=== PATIENT | male | born 1995 | race Caucasian/White ===

== ENCOUNTER 2020-09-21 14:45 | Inpatient (IN) | payer MEDICAID ==
[~2020-09-21] VITALS: Ht 185.4 cm; Wt 72.5 kg
--- NOTE | 2020-09-21 15:05 | NUR ---
FINGER STICK BLOOD GLUCOSE 479
[2020-09-21 15:29] LABS: BASOPHILS 0.2 % (0-2); EOSINOPHILS 0.1 % (0-7); HEMATOCRIT 50.4 % (42.0-54.0); HEMOGLOBIN 17.5 g/dL (13.5-17.5); IMMATURE GRANULOCYTES 3.5 % (0-5); LYMPHOCYTE ABS# 1.43 10x3/uL (1.32-3.57); LYMPHOCYTES 16.1 % (15-50); MCH 31.3 pg (26.0-34.0); MCHC 34.7 g/dL (31.0-37.0); MEAN PLATELET VOLUME 10.1 fL (7.4-10.4); MONOCYTES 7.3 % (2-11); NEUTROPHIL ABS# 6.45 10x3/uL (1.78-5.38); NEUTROPHILS 72.8 % (40-80); PLATELET COUNT 320 10x3/uL (130-400); RDW 13.6 % (11.5-14.5); WBC 8.9 10x3/uL (4.8-10.8)
[2020-09-21 15:48] LABS: ANION GAP 31.4 mmol/L (8-16); CARBON DIOXIDE 10.1 mmol/L (21.0-32.0); CREATININE - SERUM 1.4 mg/dL (0.6-1.3); POTASSIUM - SERUM 4.5 mmol/L (3.5-5.1)
[2020-09-21 15:51] LABS: BILIRUBIN - TOTAL 0.44 mg/dL (0.2-1.3); MAGNESIUM - SERUM 1.9 mg/dL (1.8-2.4); PROTEIN - SERUM 8.6 g/dL (6.4-8.2)
[2020-09-21 17:24] LABS: BILIRUBIN NEGATIVE (NEGATIVE); KETONE LARGE mg/dL (NEGATIVE); NITRITE NEGATIVE (NEGATIVE); UROBILINOGEN NORMAL mg/dL (< 2)
[2020-09-21 17:25] LABS: BACTERIA FEW HPF (NONE SEEN); SQUAMOUS EPITHELIAL NONE SEEN HPF (0-4); WHITE CELLS - URINE NONE SEEN HPF (0-1)
--- NOTE | 2020-09-21 18:30 | NUR ---
ADMITTED FROM ER, PATIENT AMBULATED INTO ROOM. AWAKE AND ALERT
[2020-09-21 18:42] VITALS: BP 126/91; BMI 19.4
[2020-09-21 19:00] VITALS: BP 94/63
--- NOTE | 2020-09-21 19:00 | NUR ---
REPORT RECEIVED FROM OFF GOING NURSE. PT IS RESTING IN BED AND ANSWERING QUESTIONS AT THIS TIME. ADMISSION ASSESSMENT COMPLETED, SEE FLOWSHEET FOR DETAILS. PER PT REQUEST FATHER WAS CALLED AND WAS GIVEN AN UPDATE AND PASSCODE WAS PROVIDED. NO NEEDS VOICED AT THIS TIME. NO S/S OF DISTRESS. WILL CONTINUE TO MONITOR.
[2020-09-21] MEDS ORDERED: ZOCOR40 MG PO (19:54)
[2020-09-21 20:00] VITALS: BP 97/66
[2020-09-21 20:05] LABS: CALC OSMOLALITY 275 mosm/kg (275-300); CALCIUM 7.9 mg/dL (8.5-10.1); CARBON DIOXIDE 10.7 mmol/L (21.0-32.0); CHLORIDE - SERUM 96 mmol/L (98-107); CREATININE - SERUM 1.1 mg/dL (0.6-1.3); GLUCOSE 309 mg/dL (74-106); POTASSIUM - SERUM 3.3 mmol/L (3.5-5.1); SODIUM 130 mmol/L (136-145); UREA NITROGEN 20 mg/dL (7-18); eGFR NON AFRICAN AMERICAN 86 mL/min (90-120)
[2020-09-21 21:00] VITALS: BP 103/61
[2020-09-21 22:00] VITALS: BP 103/64
--- NOTE | 2020-09-21 22:30 | NUR ---
SPOKE WITH REESE GARNICA REGARDING PT LABS, ORDERS TO CHANGE FLUIDS RECEIVED. PT HAS NO NEEDS VOICED AT THIS TIME. WILL CONTINUE TO MONITOR.
[2020-09-21 23:00] VITALS: BP 93/69
[2020-09-22] VITALS (23 sets, daily range): BP systolic 89–113; BP diastolic 46–71
[2020-09-22 01:31] LABS: CALC OSMOLALITY 272 mosm/kg (275-300); CALCIUM 7.1 mg/dL (8.5-10.1); CARBON DIOXIDE 21.1 mmol/L (21.0-32.0); CHLORIDE - SERUM 102 mmol/L (98-107); CREATININE - SERUM 1.2 mg/dL (0.6-1.3); GLUCOSE 181 mg/dL (74-106); POTASSIUM - SERUM 3.5 mmol/L (3.5-5.1); SODIUM 133 mmol/L (136-145); UREA NITROGEN 18 mg/dL (7-18); eGFR NON AFRICAN AMERICAN 78 mL/min (90-120)
--- NOTE | 2020-09-22 02:00 | NUR ---
SPOKE WITH REESE GARNICA REGARDING PT'S LATEST LAB VALUES AND NEW ORDERS TO CHANGE FLUIDS RECEIVED. PT HAS NO NEEDS VOICED AT THIS TIME. WILL CONTINUE TO MONITOR.
[2020-09-22 04:56] LABS: BASOPHILS 0.3 % (0-2); EOSINOPHILS 1.7 % (0-7); IMMATURE GRANULOCYTES 1.5 % (0-5); LYMPHOCYTE ABS# 1.94 10x3/uL (1.32-3.57); LYMPHOCYTES 32.7 % (15-50); MCH 30.8 pg (26.0-34.0); MEAN PLATELET VOLUME 9.5 fL (7.4-10.4); MONOCYTES 14.5 % (2-11); NEUTROPHIL ABS# 2.93 10x3/uL (1.78-5.38); NEUTROPHILS 49.3 % (40-80); PLATELET COUNT 264 10x3/uL (130-400); RDW 13.4 % (11.5-14.5)
[2020-09-22 04:58] LABS: HEMATOCRIT 35.6 % (42.0-54.0); HEMOGLOBIN 12.8 g/dL (13.5-17.5); MCV 85.6 fL (80.0-100.0); RBC 4.16 10x6/uL (4.20-6.10); WBC 5.9 10x3/uL (4.8-10.8)
[2020-09-22 05:58] LABS: MEAN PLASMA GLUCOSE 413 MG/DL (74-154)
[2020-09-22 06:05] LABS: ALKALINE PHOSPHATASE 72 U/L (30-120); CALCIUM 7.8 mg/dL (8.5-10.1); CARBON DIOXIDE 21.8 mmol/L (21.0-32.0); CHLORIDE - SERUM 103 mmol/L (98-107); CREATININE - SERUM 1.1 mg/dL (0.6-1.3); PHOSPHOROUS 2.7 mg/dL (2.5-4.9); POTASSIUM - SERUM 3.5 mmol/L (3.5-5.1); SODIUM 133 mmol/L (136-145); UREA NITROGEN 19 mg/dL (7-18); eGFR NON AFRICAN AMERICAN 86 mL/min (90-120)
[2020-09-22 06:06] LABS: MAGNESIUM - SERUM 1.4 mg/dL (1.8-2.4)
[2020-09-22 06:07] LABS: ALBUMIN 2.5 g/dL (3.4-5.0); ALT (SGPT) 33 U/L (10-68); CALC OSMOLALITY 267 mosm/kg (275-300); GLUCOSE 103 mg/dL (74-106); PROTEIN - SERUM 5.6 g/dL (6.4-8.2)
[2020-09-22 08:07] LABS: CALC OSMOLALITY 274 mosm/kg (275-300); CALCIUM 7.6 mg/dL (8.5-10.1); CARBON DIOXIDE 22.1 mmol/L (21.0-32.0); CHLORIDE - SERUM 103 mmol/L (98-107); CREATININE - SERUM 0.9 mg/dL (0.6-1.3); GLUCOSE 195 mg/dL (74-106); POTASSIUM - SERUM 3.8 mmol/L (3.5-5.1); SODIUM 134 mmol/L (136-145); UREA NITROGEN 19 mg/dL (7-18); eGFR NON AFRICAN AMERICAN > 90 mL/min (90-120)
[2020-09-22 12:10] LABS: CALC OSMOLALITY 271 mosm/kg (275-300); CALCIUM 7.8 mg/dL (8.5-10.1); CARBON DIOXIDE 23.3 mmol/L (21.0-32.0); CHLORIDE - SERUM 95 mmol/L (98-107); POTASSIUM - SERUM 3.9 mmol/L (3.5-5.1); SODIUM 126 mmol/L (136-145); UREA NITROGEN 19 mg/dL (7-18); eGFR NON AFRICAN AMERICAN > 90 mL/min (90-120)
[2020-09-22 12:11] LABS: GLUCOSE 397 mg/dL (74-106)
[2020-09-22 16:34] LABS: CALC OSMOLALITY 283 mosm/kg (275-300); CALCIUM 7.6 mg/dL (8.5-10.1); CARBON DIOXIDE 23.8 mmol/L (21.0-32.0); CHLORIDE - SERUM 98 mmol/L (98-107); POTASSIUM - SERUM 3.9 mmol/L (3.5-5.1); SODIUM 130 mmol/L (136-145); UREA NITROGEN 20 mg/dL (7-18); eGFR NON AFRICAN AMERICAN > 90 mL/min (90-120)
[2020-09-22 16:40] LABS: GLUCOSE 465 mg/dL (74-106)
--- NOTE | 2020-09-22 17:04 | NUR ---
REESE OSULLIVAN APN NOTIFIED OF BLOOD SUGAR
[2020-09-22] MEDS ORDERED: LANTUS INS100 UNITS/ SC (17:21)
[2020-09-22] MEDS ORDERED: HUMALOG 30100 UNITS/ SC (17:21)
--- NOTE | 2020-09-22 19:30 | MORECARE ---
CASE MANAGEMENT DISCHARGE SUMMARY PATIENT: DEMETRIUS DE SOUZA UNIT: [id number] ADM DATE: 09/21/20 AGE: 24 : 93 SEX: M ROOM/BED: D.2310 AUTHOR: ROX HARP PHYSICIAN: REFERRING PHYSICIAN: SKY GIRALDO MD DATE OF SERVICE: 09/22/20 Discharge Plan Patient Name: DEMETRIUS DE SOUZA [facility] [facility] 1995 Planned Disposition: Anticipated Discharge Date: Discharge Date: Expected LOS: Initial Reviewer: [email or web address] Initial Review Date: 09/21/2020 Generated: 09/22/20 8:29 pm Comments DCP- Discharge Planning Updated by [email or web address]: Emily Duvall on 09/22/20 6:[address] patient will need assistance with medications when discharged. Patient does have Medicaid pending but it usually takes 30 days before approved. CM will continue to follow and assist as needed with discharge planning / needs. Patient Name: DEMETRIUS DE SOUZA Page [phone] at 1930 All edits/amendments must be made on the electronic document DICTATION DATE: 09/22/201928 PIZZA COOK: AGUSTINA 09/22/201928 RPT#: [id number] DC DATE: STATUS: ADM IN [facility] [address] [place] [address] END OF REPORT
[2020-09-23] VITALS (14 sets, daily range): BP systolic 80–109; BP diastolic 50–79; Ht 185.4 cm; Wt 72.5 kg
[2020-09-23 03:54] LABS: BASOPHILS 0.2 % (0-2); EOSINOPHILS 2.5 % (0-7); HEMATOCRIT 33.6 % (42.0-54.0); IMMATURE GRANULOCYTES 1.1 % (0-5); LYMPHOCYTE ABS# 1.71 10x3/uL (1.32-3.57); LYMPHOCYTES 38.7 % (15-50); MCH 30.5 pg (26.0-34.0); MCHC 35.7 g/dL (31.0-37.0); MCV 85.3 fL (80.0-100.0); MEAN PLATELET VOLUME 9.3 fL (7.4-10.4); MONOCYTES 10.2 % (2-11); NEUTROPHIL ABS# 2.09 10x3/uL (1.78-5.38); NEUTROPHILS 47.3 % (40-80); RBC 3.94 10x6/uL (4.20-6.10); RDW 13.5 % (11.5-14.5)
[2020-09-23 04:10] LABS: PLATELET COUNT 202 10x3/uL (130-400); WBC 4.4 10x3/uL (4.8-10.8)
[2020-09-23 04:19] LABS: CALCIUM 7.4 mg/dL (8.5-10.1); CARBON DIOXIDE 23.1 mmol/L (21.0-32.0); CHLORIDE - SERUM 101 mmol/L (98-107); MAGNESIUM - SERUM 1.3 mg/dL (1.8-2.4); PHOSPHOROUS 2.5 mg/dL (2.5-4.9); SODIUM 132 mmol/L (136-145); UREA NITROGEN 15 mg/dL (7-18)
[2020-09-23 04:42] LABS: CALC OSMOLALITY 268 mosm/kg (275-300); CREATININE - SERUM 0.6 mg/dL (0.6-1.3); GLUCOSE 160 mg/dL (74-106); eGFR NON AFRICAN AMERICAN > 90 mL/min (90-120)
[2020-09-23 04:43] LABS: POTASSIUM - SERUM 2.8 mmol/L (3.5-5.1)
--- NOTE | 2020-09-23 05:22 | NUR ---
0453- NOTIFIED REESE BOND OF CRITICAL K LEVEL. PATIENT ON ELECTROLYTE REPLACEMENT.
--- NOTE | 2020-09-23 06:43 | NUR ---
PATIENT WITH NO ACUTE EVENTS OVER NIGHT. PATIENT COMPLAINING OF HUNGER. K 2.8 AND MAG 1.3. TREATED WITH ELECTROLYTE REPLACEMENTS.
--- NOTE | 2020-09-23 08:00 | NUR ---
PT C/O ABD CRAMPING INTERMITENT THAT IS DESRIBED CRAMPING. PT REPORTS HAS BEEN ON A CLEAR LIQUID DIET AND DOES NOT KNOW IF THAT IS WHY HE IS HAVING ABD CRAMPS OR NOT. PT OTHERWISE STABLE WITH EQUAL NON LABORED RR. DENIES ANY OTHER COMPLAINTS AT THIS TIME.
--- NOTE | 2020-09-23 09:52 | NUR ---
VESSEL SCRAPPER HELPER SUPPORT REPRESENTATIVE NOTIFIED OF PT C/O ABD PAIN.
[2020-09-24] VITALS (19 sets, daily range): BP systolic 90–141; BP diastolic 63–91
[2020-09-24 04:50] LABS: BASOPHILS 0.3 % (0-2); EOSINOPHILS 2.6 % (0-7); HEMATOCRIT 36.4 % (42.0-54.0); HEMOGLOBIN 12.9 g/dL (13.5-17.5); IMMATURE GRANULOCYTES 0.5 % (0-5); LYMPHOCYTE ABS# 1.49 10x3/uL (1.32-3.57); LYMPHOCYTES 38.1 % (15-50); MCH 30.9 pg (26.0-34.0); MCHC 35.4 g/dL (31.0-37.0); NEUTROPHIL ABS# 1.94 10x3/uL (1.78-5.38); NEUTROPHILS 49.5 % (40-80); PLATELET COUNT 226 10x3/uL (130-400); RBC 4.17 10x6/uL (4.20-6.10); WBC 3.9 10x3/uL (4.8-10.8)
[2020-09-24 05:06] LABS: MCV 87.3 fL (80.0-100.0)
[2020-09-24 05:24] LABS: CALCIUM 8.1 mg/dL (8.5-10.1); CARBON DIOXIDE 26.6 mmol/L (21.0-32.0); CHLORIDE - SERUM 106 mmol/L (98-107); CREATININE - SERUM 0.6 mg/dL (0.6-1.3); MAGNESIUM - SERUM 1.7 mg/dL (1.8-2.4); PHOSPHOROUS 2.9 mg/dL (2.5-4.9); POTASSIUM - SERUM 3.6 mmol/L (3.5-5.1); SODIUM 141 mmol/L (136-145); eGFR NON AFRICAN AMERICAN > 90 mL/min (90-120)
[2020-09-24 05:28] LABS: CALC OSMOLALITY 279 mosm/kg (275-300); GLUCOSE 106 mg/dL (74-106); UREA NITROGEN 9 mg/dL (7-18)
[2020-09-25] VITALS: BP 106/80
[2020-09-25 01:00] VITALS: BP 103/74
[2020-09-25 03:00] VITALS: BP 97/66
[2020-09-25 04:00] VITALS: BP 97/69
[2020-09-25 04:41] LABS: BASOPHILS 0 % (0-2); EOSINOPHILS 2.5 % (0-7); HEMATOCRIT 36.2 % (42.0-54.0); HEMOGLOBIN 12.7 g/dL (13.5-17.5); IMMATURE GRANULOCYTES 0.5 % (0-5); LYMPHOCYTE ABS# 1.74 10x3/uL (1.32-3.57); LYMPHOCYTES 43.4 % (15-50); MCH 30.5 pg (26.0-34.0); MCHC 35.1 g/dL (31.0-37.0); MCV 86.8 fL (80.0-100.0); MEAN PLATELET VOLUME 9.7 fL (7.4-10.4); NEUTROPHIL ABS# 1.75 10x3/uL (1.78-5.38); NEUTROPHILS 43.6 % (40-80); PLATELET COUNT 194 10x3/uL (130-400); RBC 4.17 10x6/uL (4.20-6.10); RDW 13.7 % (11.5-14.5)
[2020-09-25 05:06] LABS: CALC OSMOLALITY 280 mosm/kg (275-300); CALCIUM 8.3 mg/dL (8.5-10.1); CARBON DIOXIDE 26.4 mmol/L (21.0-32.0); CHLORIDE - SERUM 103 mmol/L (98-107); CREATININE - SERUM 0.7 mg/dL (0.6-1.3); GLUCOSE 187 mg/dL (74-106); MAGNESIUM - SERUM 1.6 mg/dL (1.8-2.4); PHOSPHOROUS 5.2 mg/dL (2.5-4.9); POTASSIUM - SERUM 3.7 mmol/L (3.5-5.1); SODIUM 137 mmol/L (136-145); UREA NITROGEN 19 mg/dL (7-18); eGFR NON AFRICAN AMERICAN > 90 mL/min (90-120)
--- NOTE | 2020-09-25 13:41 | NUR ---
sPOKE WITH PT INDEPTH BEFORE DISCHARGE ON INSULIN DIFFERENCES AND GLUCOSE MONITORING. PT VERBALIZED UNDERSTANDING AND STATED HE HAD PLENTY OF REGULAR INSULIN AND WAS OUT OF HIS HUMALOG AND LONG ACTING INSULIN. PT STATES HE IS WAITING FOR MEDICAID TO APPROVE HIM SO HE CAN START TAKING HIS NORMAL MEDS. pT STATES HE WILL TAKE HIS INSULIN ACCORDING TO SLIDING SCALE AND MONITOR GLUCOSE SEVERAL TIMES DAILY. PT ALSO STATES HE CAN ADJUST NEEDED DOSES OF INSULIN DEPENDING ON WHAT HE EATS. NOTIFIED CASE MANAGMENT OF PT NEEDS FOR ASSISTANCE.
--- NOTE | 2020-09-26 08:01 | MORECARE ---
CASE MANAGEMENT DISCHARGE SUMMARY PATIENT: DEMETRIUS DE SOUZA UNIT: [id number] ADM DATE: 09/21/20 AGE: 24 : 93 SEX: M ROOM/BED: D.2310 AUTHOR: ROX HARP PHYSICIAN: REFERRING PHYSICIAN: SKY GIRALDO MD DATE OF SERVICE: 09/26/20 Discharge Plan Patient Name: DEMETRIUS DE SOUZA [facility] [facility] 1995 Planned Disposition: Anticipated Discharge Date: Discharge Date: 09/25/2020 Expected LOS: Initial Reviewer: [email or web address] Initial Review Date: 09/21/2020 Generated: 09/26/20 9:00 am Comments DCP- Discharge Planning Updated by [email or web address]: Emily Duvall on 09/22/20 6:[address] patient will need assistance with medications when discharged. Patient does have Medicaid pending but it usually takes 30 days before approved. CM will continue to follow and assist as needed with discharge planning / needs. Last DP export: 09/22/20 6:30 pm Patient Name: DEMETRIUS DE SOUZA Page [phone] at 0801 All edits/amendments must be made on the electronic document DICTATION DATE: 09/26/20800 FINISH GRINDER: AGUSTINA 09/26/20800 RPT#: [id number] DC DATE:09/25/20 STATUS: DIS IN [facility] [address] [place] [address] END OF REPORT
== END 2020-09-25 11:36 | disposition home or self-care (01) | DRG 638 ==
LOC: D.ER 14:45 → D.EDHOLD 15:27 → D.ICU 15:27
PROVIDERS: Family Medicine; ADMIT Family Medicine; ATTEND Family Medicine
DX: E10.10 Type 1 diabetes mellitus with ketoacidosis without coma (principal); E87.1 Hypo-osmolality and hyponatremia; E86.0 Dehydration; Z79.4 Long term (current) use of insulin; I95.9 Hypotension, unspecified; E83.42 Hypomagnesemia; Z91.19 Patient's noncompliance with other medical treatment and regimen

== ENCOUNTER 2020-10-18 12:38 | Emergency (ER) | payer SELFPAY ==
[~2020-10-18] VITALS: Ht 185.4 cm; Wt 73.6 kg
[~2020-10-18 12:38] MED LIST: HUMALOG 30100 UNITS/ SC; LANTUS INS100 UNITS/ SC; ZOCOR40 MG PO
[2020-10-18 13:13] VITALS: Ht 185.4 cm; Wt 73.6 kg
[2020-10-18 13:56] LABS: HEMATOCRIT 45.6 % (42.0-54.0); HEMOGLOBIN 15.7 g/dL (13.5-17.5); LYMPHOCYTE ABS# 1.77 10x3/uL (1.32-3.57); MCHC 34.4 g/dL (31.0-37.0); MCV 89.9 fL (80.0-100.0); NEUTROPHIL ABS# 3.63 10x3/uL (1.78-5.38); PLATELET COUNT 231 10x3/uL (130-400); RBC 5.07 10x6/uL (4.20-6.10); WBC 7.2 10x3/uL (4.8-10.8)
[2020-10-18 13:59] LABS: CALC OSMOLALITY 263 mosm/kg (275-300); CARBON DIOXIDE 13.3 mmol/L (21.0-32.0); CHLORIDE - SERUM 92 mmol/L (98-107); CREATININE - SERUM 1.1 mg/dL (0.6-1.3); POTASSIUM - SERUM 4.4 mmol/L (3.5-5.1); SODIUM 127 mmol/L (136-145); UREA NITROGEN 9 mg/dL (7-18); eGFR NON AFRICAN AMERICAN 86 mL/min (90-120)
[2020-10-18 14:01] LABS: GLUCOSE 279 mg/dL (74-106)
[2020-10-18 14:10] LABS: ALBUMIN 2.8 g/dL (3.4-5.0); ALKALINE PHOSPHATASE 542 U/L (30-120); BILIRUBIN - TOTAL 11.58 mg/dL (0.2-1.3); PROTEIN - SERUM 6.8 g/dL (6.4-8.2)
[2020-10-18 14:14] LABS: EOSINOPHILS 1 % (0-7); LYMPHOCYTES 20 % (15-50); MONOCYTES 11 % (2-11); NEUTROPHILS 68 % (40-80); PLATELET ESTIMATE NORMAL; TEAR DROP CELLS OCC
[2020-10-18 14:20] LABS: ALT (SGPT) 3693 U/L (10-68)
[2020-10-18 15:53] LABS: BILIRUBIN NEGATIVE (NEGATIVE); KETONE LARGE mg/dL (NEGATIVE); NITRITE NEGATIVE (NEGATIVE); UROBILINOGEN NORMAL mg/dL (< 2)
[2020-10-18 19:20] LABS: UDS - AMPHET NEGATIVE QUAL (NEGATIVE); UDS - BARB NEGATIVE QUAL (NEGATIVE); UDS - BENZO NEGATIVE QUAL (NEGATIVE); UDS - COCAINE NEGATIVE QUAL (NEGATIVE); UDS - OPIATE NEGATIVE QUAL (NEGATIVE); UDS - PCP NEGATIVE QUAL (NEGATIVE); UDS - THC NEGATIVE QUAL (NEGATIVE)
[2020-10-18] MEDS ORDERED: ULTRAM50 MG PO (19:30)
[2020-10-18 20:16] VITALS: BP 112/78
[2020-10-19 07:15] LABS: HEPATITIS C ANTIBODY 10.9 (0.0-0.9)
== END 2020-10-18 20:16 | disposition home or self-care (01) ==
LOC: D.ER 12:38
PROVIDERS: Emergency Medicine
DX: K75.9 Inflammatory liver disease, unspecified (principal); E11.9 Type 2 diabetes mellitus without complications; Z79.4 Long term (current) use of insulin; R53.1 Weakness

== ENCOUNTER 2020-10-20 03:29 | Emergency (ER) | payer SELFPAY ==
[~2020-10-20] VITALS: Ht 185.4 cm; Wt 75.3 kg
[~2020-10-20 03:29] MED LIST changes: +ULTRAM50 MG PO
[2020-10-20 03:37] VITALS: BP 124/77; Ht 185.4 cm; Wt 75.3 kg
[2020-10-20 04:07] LABS: HEMATOCRIT 47.8 % (42.0-54.0); HEMOGLOBIN 16.3 g/dL (13.5-17.5); LYMPHOCYTE ABS# 2.85 10x3/uL (1.32-3.57); MCH 30.4 pg (26.0-34.0); MCHC 34.1 g/dL (31.0-37.0); MEAN PLATELET VOLUME 10.9 fL (7.4-10.4); NEUTROPHIL ABS# 5.49 10x3/uL (1.78-5.38); PLATELET COUNT 274 10x3/uL (130-400); RBC 5.37 10x6/uL (4.20-6.10); RDW 14.2 % (11.5-14.5)
[2020-10-20 04:18] LABS: WBC 9.9 10x3/uL (4.8-10.8)
[2020-10-20 04:22] LABS: CALCIUM 8.7 mg/dL (8.5-10.1); CARBON DIOXIDE 12.8 mmol/L (21.0-32.0); CHLORIDE - SERUM 90 mmol/L (98-107); CREATININE - SERUM 1.1 mg/dL (0.6-1.3); SODIUM 127 mmol/L (136-145); UREA NITROGEN 9 mg/dL (7-18); eGFR NON AFRICAN AMERICAN 86 mL/min (90-120)
[2020-10-20 04:23] LABS: INR 1.26 (0.85-1.17); PROTIME 14.6 SECONDS (11.6-15.0)
[2020-10-20 04:26] LABS: CALC OSMOLALITY 266 mosm/kg (275-300); GLUCOSE 332 mg/dL (74-106); POTASSIUM - SERUM 3.6 mmol/L (3.5-5.1)
[2020-10-20 04:33] LABS: ALKALINE PHOSPHATASE 555 U/L (30-120); PROTEIN - SERUM 7.1 g/dL (6.4-8.2)
[2020-10-20 04:45] LABS: BASOPHILS 1 % (0-2); EOSINOPHILS 1 % (0-7); LYMPHOCYTES 25 % (15-50); MONOCYTES 8 % (2-11); NEUTROPHILS 53 % (40-80); PLATELET ESTIMATE NORMAL
[2020-10-20 04:46] LABS: PLATELET MORPHOLOGY GIANT PLTS PRESENT
[2020-10-20 04:53] LABS: ALT (SGPT) 4232 U/L (10-68)
[2020-10-20 05:46] LABS: BILIRUBIN NEGATIVE (NEGATIVE); KETONE LARGE mg/dL (NEGATIVE); NITRITE NEGATIVE (NEGATIVE); UROBILINOGEN NORMAL mg/dL (< 2)
[2020-10-20 05:54] LABS: UDS - AMPHET NEGATIVE QUAL (NEGATIVE); UDS - BARB NEGATIVE QUAL (NEGATIVE); UDS - BENZO NEGATIVE QUAL (NEGATIVE); UDS - COCAINE NEGATIVE QUAL (NEGATIVE); UDS - OPIATE NEGATIVE QUAL (NEGATIVE); UDS - PCP NEGATIVE QUAL (NEGATIVE); UDS - THC NEGATIVE QUAL (NEGATIVE)
[2020-10-20] MEDS ORDERED: ZOFRAN ODT4 MG/UDTAB PO (06:10)
[2020-10-20] MEDS ORDERED: DILAUDID2 MG PO (06:10)
== END 2020-10-20 06:26 | disposition home or self-care (01) ==
LOC: D.ER 03:29
PROVIDERS: Family Medicine
DX: B17.9 Acute viral hepatitis, unspecified (principal); E11.9 Type 2 diabetes mellitus without complications; Z79.4 Long term (current) use of insulin

== ENCOUNTER 2020-10-21 21:55 | Inpatient (IN) | payer MEDICAID ==
[~2020-10-21] VITALS: Ht 185.4 cm; Wt 70.1 kg
[~2020-10-21 21:55] MED LIST changes: +DILAUDID2 MG PO; +ZOFRAN ODT4 MG/UDTAB PO
[2020-10-21 22:44] LABS: BASOPHILS 0.4 % (0-2); EOSINOPHILS 0.3 % (0-7); HEMATOCRIT 44.9 % (42.0-54.0); HEMOGLOBIN 15.6 g/dL (13.5-17.5); IMMATURE GRANULOCYTES 3.1 % (0-5); LYMPHOCYTES 25.1 % (15-50); MCHC 34.7 g/dL (31.0-37.0); MCV 89.3 fL (80.0-100.0); MEAN PLATELET VOLUME 10.7 fL (7.4-10.4); MONOCYTES 14.3 % (2-11); NEUTROPHIL ABS# 6.33 10x3/uL (1.78-5.38); NEUTROPHILS 56.8 % (40-80); PLATELET COUNT 295 10x3/uL (130-400); RBC 5.03 10x6/uL (4.20-6.10); RDW 14.4 % (11.5-14.5); WBC 11.2 10x3/uL (4.8-10.8)
[2020-10-21 22:49] LABS: APTT 32.7 SECONDS (22.8-39.4); INR 1.43 (0.85-1.17); PROTIME 16.2 SECONDS (11.6-15.0)
[2020-10-21 23:07] LABS: ALBUMIN 2.9 g/dL (3.4-5.0); ALKALINE PHOSPHATASE 519 U/L (30-120); CALCIUM 7.9 mg/dL (8.5-10.1); CHLORIDE - SERUM 91 mmol/L (98-107); CREATINE KINASE 18 UL (21-232); LIPASE 290 U/L (73-393); MAGNESIUM - SERUM 2.1 mg/dL (1.8-2.4); POTASSIUM - SERUM 3.8 mmol/L (3.5-5.1); PRO BNP 65 pg/mL (0-125); PROTEIN - SERUM 6.8 g/dL (6.4-8.2); SODIUM 124 mmol/L (136-145); UREA NITROGEN 11 mg/dL (7-18); eGFR NON AFRICAN AMERICAN > 90 mL/min (90-120)
[2020-10-21 23:10] LABS: ALT (SGPT) 2836 U/L (10-68); CALC OSMOLALITY 257 mosm/kg (275-300); GLUCOSE 261 mg/dL (74-106)
[2020-10-21 23:11] LABS: CARBON DIOXIDE 9.4 mmol/L (21.0-32.0)
--- NOTE | 2020-10-21 23:11 | NUR ---
CRITICAL LAB VALUE CALLED TO ED. CO2 OF 9.4, EDP [place] NOTIFIED AND FURTHER ORDER ENTERED INTO CHART.
[2020-10-22] VITALS (21 sets, daily range): BP systolic 100–145; BP diastolic 67–89; Ht 185.4 cm; Wt 70.1 kg
[2020-10-22 01:10] LABS: UDS - AMPHET NEGATIVE QUAL (NEGATIVE); UDS - BARB NEGATIVE QUAL (NEGATIVE); UDS - BENZO NEGATIVE QUAL (NEGATIVE); UDS - COCAINE NEGATIVE QUAL (NEGATIVE); UDS - OPIATE POSITIVE QUAL (NEGATIVE); UDS - PCP NEGATIVE QUAL (NEGATIVE); UDS - THC NEGATIVE QUAL (NEGATIVE)
[2020-10-22 01:19] LABS: NITRITE NEGATIVE (NEGATIVE)
[2020-10-22 01:20] LABS: BACTERIA FEW HPF (NONE SEEN); BILIRUBIN NEGATIVE (NEGATIVE); KETONE LARGE mg/dL (NEGATIVE); SQUAMOUS EPITHELIAL 0-5 HPF (0-4); UROBILINOGEN NORMAL mg/dL (< 2); WHITE CELLS - URINE 0-5 HPF (0-1)
--- NOTE | 2020-10-22 06:21 | NUR ---
NEPH AND GI CONSULTED THIS AM.
--- NOTE | 2020-10-22 11:51 | NUR ---
DRESSING CHANGED BY NSG PRACTITIONER AND SEEMED TO HELP THE ISSUE WITH HER PAIN AND RESPIRATORY DRIVE. HAVE TURNED OXYGEN DOWN TO 4.5 HIGH FLOW AND PAIN MEDS GIVEN.
[2020-10-22 12:03] LABS: CALC OSMOLALITY 280 mosm/kg (275-300); CALCIUM 7.4 mg/dL (8.5-10.1); CHLORIDE - SERUM 101 mmol/L (98-107); CREATININE - SERUM 0.9 mg/dL (0.6-1.3); GLUCOSE 267 mg/dL (74-106); MAGNESIUM - SERUM 2.3 mg/dL (1.8-2.4); SODIUM 136 mmol/L (136-145); UREA NITROGEN 12 mg/dL (7-18); eGFR NON AFRICAN AMERICAN > 90 mL/min (90-120)
[2020-10-22 12:14] LABS: CARBON DIOXIDE 4.8 mmol/L (21.0-32.0); POTASSIUM - SERUM 2.9 mmol/L (3.5-5.1)
--- NOTE | 2020-10-22 12:44 | NUR ---
16 INDONESIAN ROSE PLACED WITH NO PROBLEMS. RENAL HERE AND ORDERS GIVEN AND PLACED.
--- NOTE | 2020-10-22 13:32 | NUR ---
NEW IV STARTED LEFT ARM 20 CAMI.
[2020-10-22 17:03] LABS: CALCIUM 7.9 mg/dL (8.5-10.1); CHLORIDE - SERUM 106 mmol/L (98-107); CREATININE - SERUM 0.9 mg/dL (0.6-1.3); MAGNESIUM - SERUM 2.3 mg/dL (1.8-2.4); POTASSIUM - SERUM 3.1 mmol/L (3.5-5.1); SODIUM 142 mmol/L (136-145); UREA NITROGEN 13 mg/dL (7-18); eGFR NON AFRICAN AMERICAN > 90 mL/min (90-120)
[2020-10-22 17:04] LABS: CALC OSMOLALITY 284 mosm/kg (275-300); CARBON DIOXIDE 12.3 mmol/L (21.0-32.0); GLUCOSE 138 mg/dL (74-106)
[2020-10-22 19:47] LABS: CALC OSMOLALITY 284 mosm/kg (275-300); CALCIUM 7.8 mg/dL (8.5-10.1); CHLORIDE - SERUM 107 mmol/L (98-107); CREATININE - SERUM 0.8 mg/dL (0.6-1.3); GLUCOSE 168 mg/dL (74-106); MAGNESIUM - SERUM 2.1 mg/dL (1.8-2.4); POTASSIUM - SERUM 3.2 mmol/L (3.5-5.1); SODIUM 141 mmol/L (136-145); UREA NITROGEN 13 mg/dL (7-18); eGFR NON AFRICAN AMERICAN > 90 mL/min (90-120)
[2020-10-22 19:49] LABS: CARBON DIOXIDE 15.9 mmol/L (21.0-32.0)
--- NOTE | 2020-10-22 22:40 | NUR ---
IV DC ON LEFT AC AND LEFT FOREARM. IV RELOCATED TO RIGHT FOREARM.
[2020-10-22 23:06] LABS: CALCIUM 8.1 mg/dL (8.5-10.1); MAGNESIUM - SERUM 2.4 mg/dL (1.8-2.4)
[2020-10-22 23:39] LABS: PHOSPHOROUS 0.6 mg/dL (2.5-4.9)
[2020-10-22 23:45] LABS: ANION GAP 17.7 mmol/L (8-16); CARBON DIOXIDE 19.2 mmol/L (21.0-32.0)
[2020-10-22 23:46] LABS: POTASSIUM - SERUM 3.9 mmol/L (3.5-5.1)
[2020-10-23] VITALS (25 sets, daily range): BP systolic 98–120; BP diastolic 59–86
[2020-10-23 04:50] LABS: BASOPHILS 0.4 % (0-2); EOSINOPHILS 0.1 % (0-7); HEMATOCRIT 36.7 % (42.0-54.0); HEMOGLOBIN 13.2 g/dL (13.5-17.5); IMMATURE GRANULOCYTES 0.9 % (0-5); LYMPHOCYTE ABS# 1.65 10x3/uL (1.32-3.57); LYMPHOCYTES 16.8 % (15-50); MCH 30.2 pg (26.0-34.0); MEAN PLATELET VOLUME 10.3 fL (7.4-10.4); MONOCYTES 20.5 % (2-11); NEUTROPHIL ABS# 6.02 10x3/uL (1.78-5.38); NEUTROPHILS 61.3 % (40-80); PLATELET COUNT 310 10x3/uL (130-400); RBC 4.37 10x6/uL (4.20-6.10); RDW 14.2 % (11.5-14.5); WBC 9.8 10x3/uL (4.8-10.8)
[2020-10-23 05:25] LABS: ALBUMIN 2.2 g/dL (3.4-5.0); ALKALINE PHOSPHATASE 374 U/L (30-120); BILIRUBIN - TOTAL 13.43 mg/dL (0.2-1.3); CALCIUM 7.8 mg/dL (8.5-10.1); CHLORIDE - SERUM 109 mmol/L (98-107); CREATININE - SERUM 0.8 mg/dL (0.6-1.3); MAGNESIUM - SERUM 2.4 mg/dL (1.8-2.4); POTASSIUM - SERUM 3.6 mmol/L (3.5-5.1); PROTEIN - SERUM 5.2 g/dL (6.4-8.2); SODIUM 144 mmol/L (136-145); UREA NITROGEN 12 mg/dL (7-18); eGFR NON AFRICAN AMERICAN > 90 mL/min (90-120)
[2020-10-23 05:26] LABS: ALT (SGPT) 1829 U/L (10-68); CALC OSMOLALITY 287 mosm/kg (275-300); CARBON DIOXIDE 27.2 mmol/L (21.0-32.0); GLUCOSE 110 mg/dL (74-106)
--- NOTE | 2020-10-23 06:00 | NUR ---
ORDERED TO STOP BICARB AND INSULIN. ADMINISTER 40MEQ POTASSIUM PO BID, NEUTROPHOS BID FOR PHOSPHORUS, START 1/2 NS AT 100ML/HR, FOR ADMITTING DR TO START HOME INSULIN AT HALF THE DOSE DUE TO PATIENT DECREASED APPETITE. MYLENE CONTACTED TO INFORM TO ORDER HOME INSULIN. PT REPORTS HOME INSULIN NOVOLIN R.
[2020-10-23 08:09] LABS: CALC OSMOLALITY 273 mosm/kg (275-300); CALCIUM 7.7 mg/dL (8.5-10.1); CARBON DIOXIDE 26.1 mmol/L (21.0-32.0); CHLORIDE - SERUM 103 mmol/L (98-107); CREATININE - SERUM 0.8 mg/dL (0.6-1.3); GLUCOSE 121 mg/dL (74-106); SODIUM 137 mmol/L (136-145); UREA NITROGEN 11 mg/dL (7-18); eGFR NON AFRICAN AMERICAN > 90 mL/min (90-120)
--- NOTE | 2020-10-23 08:11 | NUR ---
Nutrition follow-up: Pt continues on a clear liquid diet Glucose now WNL; GAP closed wt: 154# RDN will monitor patients diet advancement, tolerance and progress. Follow-up: 10/25/20
[2020-10-23 11:54] LABS: CALC OSMOLALITY 269 mosm/kg (275-300); CALCIUM 7.2 mg/dL (8.5-10.1); CARBON DIOXIDE 18.3 mmol/L (21.0-32.0); CHLORIDE - SERUM 93 mmol/L (98-107); CREATININE - SERUM 0.8 mg/dL (0.6-1.3); GLUCOSE 381 mg/dL (74-106); SODIUM 127 mmol/L (136-145); UREA NITROGEN 10 mg/dL (7-18); eGFR NON AFRICAN AMERICAN > 90 mL/min (90-120)
[2020-10-23 13:29] LABS: CALC OSMOLALITY 269 mosm/kg (275-300); CALCIUM 7.4 mg/dL (8.5-10.1); CARBON DIOXIDE 20.3 mmol/L (21.0-32.0); CHLORIDE - SERUM 92 mmol/L (98-107); CREATININE - SERUM 0.9 mg/dL (0.6-1.3); GLUCOSE 358 mg/dL (74-106); POTASSIUM - SERUM 3.5 mmol/L (3.5-5.1); SODIUM 128 mmol/L (136-145); UREA NITROGEN 10 mg/dL (7-18); eGFR NON AFRICAN AMERICAN > 90 mL/min (90-120)
[2020-10-23 13:41] LABS: ALKALINE PHOSPHATASE 341 U/L (30-120); ALT (SGPT) 1598 U/L (10-68); BILIRUBIN - TOTAL 12.31 mg/dL (0.2-1.3)
[2020-10-23 16:14] LABS: CALC OSMOLALITY 267 mosm/kg (275-300); CALCIUM 7.8 mg/dL (8.5-10.1); CARBON DIOXIDE 26.5 mmol/L (21.0-32.0); CHLORIDE - SERUM 95 mmol/L (98-107); CREATININE - SERUM 0.8 mg/dL (0.6-1.3); GLUCOSE 271 mg/dL (74-106); POTASSIUM - SERUM 3.2 mmol/L (3.5-5.1); SODIUM 129 mmol/L (136-145); UREA NITROGEN 9 mg/dL (7-18); eGFR NON AFRICAN AMERICAN > 90 mL/min (90-120)
--- NOTE | 2020-10-23 16:53 | NUR ---
SPOKE WITH ABOUT PTS NEW LABS. NEW ORDERS TO DC 1/2NS 100 BICARB 40K AND CHANGE IT TO NS @ 100, CONTINUE INSULIN DRIP PER PROTCOL. WILL REPEAT LABS AT 2200 AND CALL FIRE PROTECTION FABRICATOR RENAL WITH RESULTS.
--- NOTE | 2020-10-23 19:20 | NUR ---
BEDSIDE REPORT RECIEVED, PT DROWSY, WAKES EASILY, DISORIENTED TO TIME AND YEAR, ORIENTED TO SELF AND PLACE. NS INFUSING @100ML/HR AND INSULIN DRIP INFUSING TO RIGHT FOREARM. PT INCONTINENT WITH LARGE SOFT BM, BROWN WITH NO SIGNS OF BLOOD IN STOOL, PT CLEANED AND LINEN CHANGE PREFORMED. PT EDUCATED AND FALL PREVENTION DISCUSSED. CALL LIGHT AND PERSONAL ITEMS WITHIN REACH, BED LOW AND LOCKED AND BED ALARM ACTIVE.
[2020-10-23 23:14] LABS: CALCIUM 7.4 mg/dL (8.5-10.1); CARBON DIOXIDE 28.1 mmol/L (21.0-32.0); CHLORIDE - SERUM 97 mmol/L (98-107); CREATININE - SERUM 0.7 mg/dL (0.6-1.3); POTASSIUM - SERUM 3.2 mmol/L (3.5-5.1); SODIUM 131 mmol/L (136-145); eGFR NON AFRICAN AMERICAN > 90 mL/min (90-120)
[2020-10-23 23:16] LABS: CALC OSMOLALITY 263 mosm/kg (275-300); GLUCOSE 145 mg/dL (74-106); UREA NITROGEN 6 mg/dL (7-18)
[2020-10-24] VITALS (17 sets, daily range): BP systolic 97–145; BP diastolic 53–75
--- NOTE | 2020-10-24 00:22 | NUR ---
Dr Dougherty called to report lab results, BMP results reported to MD MARVA said okay to replace electolytes per protocol in A.M. No orders recieved at this time.
[2020-10-24 04:01] LABS: BASOPHILS 0.5 % (0-2); EOSINOPHILS 1.5 % (0-7); HEMATOCRIT 32.2 % (42.0-54.0); HEMOGLOBIN 11.3 g/dL (13.5-17.5); IMMATURE GRANULOCYTES 0.4 % (0-5); LYMPHOCYTE ABS# 1.96 10x3/uL (1.32-3.57); LYMPHOCYTES 26.8 % (15-50); MCH 29.6 pg (26.0-34.0); MCHC 35.1 g/dL (31.0-37.0); MCV 84.3 fL (80.0-100.0); MEAN PLATELET VOLUME 10.3 fL (7.4-10.4); MONOCYTES 11.1 % (2-11); NEUTROPHIL ABS# 4.36 10x3/uL (1.78-5.38); NEUTROPHILS 59.7 % (40-80); RBC 3.82 10x6/uL (4.20-6.10); RDW 14.6 % (11.5-14.5)
[2020-10-24 04:02] LABS: PLATELET COUNT 232 10x3/uL (130-400); WBC 7.3 10x3/uL (4.8-10.8)
[2020-10-24 04:19] LABS: ALBUMIN 1.8 g/dL (3.4-5.0); ALKALINE PHOSPHATASE 318 U/L (30-120); BILIRUBIN - TOTAL 9.73 mg/dL (0.2-1.3); CALC OSMOLALITY 266 mosm/kg (275-300); CALCIUM 7.5 mg/dL (8.5-10.1); CARBON DIOXIDE 29.4 mmol/L (21.0-32.0); CHLORIDE - SERUM 98 mmol/L (98-107); CREATININE - SERUM 0.8 mg/dL (0.6-1.3); GLUCOSE 174 mg/dL (74-106); PROTEIN - SERUM 4.9 g/dL (6.4-8.2); SODIUM 133 mmol/L (136-145); UREA NITROGEN 5 mg/dL (7-18); eGFR NON AFRICAN AMERICAN > 90 mL/min (90-120)
[2020-10-24 04:21] LABS: ALT (SGPT) 1426 U/L (10-68); MAGNESIUM - SERUM 1.6 mg/dL (1.8-2.4)
--- NOTE | 2020-10-24 04:41 | NUR ---
PT POTASSIUM LEVEL 3.0 AND MAG LEVEL 1.6, POTASSIUM TREATED WITH 40MEQ PO K-DUR AND MAG TREATED WITH PO MAGNESIUM OXIDE 400MG NOW AND WILL BE DUE FOR ANOTHER 400MG AT 0830, WILL REPORT TO ONCOMING RN, BMP ORDERED Q4H.
--- NOTE | 2020-10-24 07:55 | NUR ---
UPDATE CALLED TO DR. FONTAINE, NEW ORDERS RECIEVED
[2020-10-24 08:43] LABS: CALC OSMOLALITY 265 mosm/kg (275-300); CALCIUM 7.5 mg/dL (8.5-10.1); CARBON DIOXIDE 27.3 mmol/L (21.0-32.0); CHLORIDE - SERUM 99 mmol/L (98-107); CREATININE - SERUM 0.8 mg/dL (0.6-1.3); GLUCOSE 151 mg/dL (74-106); POTASSIUM - SERUM 3.3 mmol/L (3.5-5.1); SODIUM 132 mmol/L (136-145); UREA NITROGEN 6 mg/dL (7-18); eGFR NON AFRICAN AMERICAN > 90 mL/min (90-120)
--- NOTE | 2020-10-24 11:00 | NUR ---
MILTON VÁSQUEZ'Chriss AT THIS TIME, PT TOLERATED WELL
--- NOTE | 2020-10-24 11:46 | NUR ---
ROSE DISCONTINUED WITH NO PROBLEMS AND PATIENT HAS VOIDED IN URINAL AROUND 300CC.
[2020-10-24 12:17] LABS: CALC OSMOLALITY 266 mosm/kg (275-300); CALCIUM 7.7 mg/dL (8.5-10.1); CHLORIDE - SERUM 95 mmol/L (98-107); CREATININE - SERUM 0.7 mg/dL (0.6-1.3); GLUCOSE 278 mg/dL (74-106); SODIUM 129 mmol/L (136-145); UREA NITROGEN 6 mg/dL (7-18); eGFR NON AFRICAN AMERICAN > 90 mL/min (90-120)
--- NOTE | 2020-10-24 15:16 | NUR ---
PATIENT TO TRANSFER TO 2230 AND REPORT CALLED AND LAST SET OF VITALS CHARTED.
[2020-10-24 16:28] LABS: CALC OSMOLALITY 267 mosm/kg (275-300); CALCIUM 8.2 mg/dL (8.5-10.1); CARBON DIOXIDE 24.6 mmol/L (21.0-32.0); CHLORIDE - SERUM 94 mmol/L (98-107); CREATININE - SERUM 0.8 mg/dL (0.6-1.3); GLUCOSE 332 mg/dL (74-106); POTASSIUM - SERUM 4.6 mmol/L (3.5-5.1); SODIUM 128 mmol/L (136-145); UREA NITROGEN 8 mg/dL (7-18); eGFR NON AFRICAN AMERICAN > 90 mL/min (90-120)
--- NOTE | 2020-10-24 16:40 | NUR ---
RECEIVED PT VIA WHEELCHAIR FROM ICU. PT AOX4, VSS, SKIN INTACT. BED LOW AND LOCKED, CALL LIGHT IN REACH. WILL CONTINUE TO MONITOR.
[2020-10-24 20:45] LABS: CALC OSMOLALITY 262 mosm/kg (275-300); CALCIUM 7.6 mg/dL (8.5-10.1); CARBON DIOXIDE 26.6 mmol/L (21.0-32.0); CHLORIDE - SERUM 95 mmol/L (98-107); CREATININE - SERUM 0.8 mg/dL (0.6-1.3); GLUCOSE 334 mg/dL (74-106); POTASSIUM - SERUM 4.2 mmol/L (3.5-5.1); SODIUM 125 mmol/L (136-145); UREA NITROGEN 8 mg/dL (7-18); eGFR NON AFRICAN AMERICAN > 90 mL/min (90-120)
--- NOTE | 2020-10-24 22:47 | NUR ---
PT RESTING IN BED AT THIS TIME. NO COMPLAINTS OF PAIN NOR DISTRESS. ABLE TO MAKE WANTS AND NEEDS KNOWN AT THIS TIME. PT GOT UP AND TOOK A SHOWER TONIGHT. BED IN LOWEST POSITION AND CALL LUZ LIGHT IN REACH.
[2020-10-25 04:00] VITALS: BP 120/79
[2020-10-25 07:24] LABS: BASOPHILS 0.3 % (0-2); HEMATOCRIT 35.3 % (42.0-54.0); HEMOGLOBIN 12.1 g/dL (13.5-17.5); IMMATURE GRANULOCYTES 0.9 % (0-5); LYMPHOCYTE ABS# 2.54 10x3/uL (1.32-3.57); LYMPHOCYTES 38.1 % (15-50); MCH 30.1 pg (26.0-34.0); MCHC 34.3 g/dL (31.0-37.0); MEAN PLATELET VOLUME 11.1 fL (7.4-10.4); MONOCYTES 11.5 % (2-11); NEUTROPHIL ABS# 3.21 10x3/uL (1.78-5.38); NEUTROPHILS 48.2 % (40-80); PLATELET COUNT 247 10x3/uL (130-400); RBC 4.02 10x6/uL (4.20-6.10); RDW 15.1 % (11.5-14.5); WBC 6.7 10x3/uL (4.8-10.8)
[2020-10-25 07:29] LABS: MCV 87.8 fL (80.0-100.0)
[2020-10-25 07:52] LABS: ALKALINE PHOSPHATASE 379 U/L (30-120); BILIRUBIN - TOTAL 8.15 mg/dL (0.2-1.3); CALC OSMOLALITY 268 mosm/kg (275-300); CALCIUM 8.1 mg/dL (8.5-10.1); CARBON DIOXIDE 20.9 mmol/L (21.0-32.0); CHLORIDE - SERUM 93 mmol/L (98-107); CREATININE - SERUM 0.7 mg/dL (0.6-1.3); GLUCOSE 361 mg/dL (74-106); MAGNESIUM - SERUM 1.7 mg/dL (1.8-2.4); PROTEIN - SERUM 5.4 g/dL (6.4-8.2); SODIUM 127 mmol/L (136-145); UREA NITROGEN 10 mg/dL (7-18); eGFR NON AFRICAN AMERICAN > 90 mL/min (90-120)
[2020-10-25 07:53] LABS: ALT (SGPT) 1267 U/L (10-68); POTASSIUM - SERUM 4.9 mmol/L (3.5-5.1)
[2020-10-25 08:44] VITALS: BP 114/76
--- NOTE | 2020-10-25 09:00 | NUR ---
ALERT AND ORIENTED AND UP ADLIB. IVF INFUSING AT PRESCRIBED RATE TO RIGHT F/A. DENIES ANY PAIN OR DISCOMFORT AND ENCOURAGED TO USE CALL LIGHT FOR ASSSIT.
--- NOTE | 2020-10-25 13:08 | NUR ---
Nutrition follow-up: Pt just out of ICU Diet: consistent CHO PO intake 100% of meals Labs reviewed; Glucose still high but under better control Wt: 154# PO intake good at this time RDN will provide pt with diabetic diet information Follow-up: 10/29/20
[2020-10-25 13:54] VITALS: BP 116/73
[2020-10-25 14:23] LABS: BILIRUBIN NEGATIVE (NEGATIVE); KETONE 3+ mg/dL (NEGATIVE); NITRITE NEGATIVE (NEGATIVE); UROBILINOGEN NORMAL mg/dL (< 2)
[2020-10-25 14:24] LABS: WHITE CELLS - URINE NONE SEEN HPF (0-1)
[2020-10-25 17:08] LABS: HCVGENO - HEP C QUANT See Final Results IU/mL (()); HCVGENO - LOG10 7.398 (()); HCVGENO - RNA (UNITS) 25000000 IU/mL (())
[2020-10-25 17:11] VITALS: BP 118/75
[2020-10-25 19:36] VITALS: BP 110/65
--- NOTE | 2020-10-25 22:54 | NUR ---
PT RESTING IN BED. NO COMPLAINTS OF PAIN NOR DISCOMFORT NOTED AT THIS TIME. ABLE TO MAKE WANTS AND NEEDS KNOWN CLEARLY. PT GOT UP AND TOOK A SHOWER TONIGHT WELL. BED IN LOW POSITION WITH CALL LIGHT IN REACH.
[2020-10-26 04:21] VITALS: BP 122/75
[2020-10-26 06:56] LABS: BASOPHILS 0.6 % (0-2); EOSINOPHILS 1.5 % (0-7); HEMATOCRIT 33.4 % (42.0-54.0); HEMOGLOBIN 11.3 g/dL (13.5-17.5); IMMATURE GRANULOCYTES 1.3 % (0-5); LYMPHOCYTE ABS# 2.28 10x3/uL (1.32-3.57); LYMPHOCYTES 36.9 % (15-50); MCH 29.9 pg (26.0-34.0); MCHC 33.8 g/dL (31.0-37.0); MCV 88.4 fL (80.0-100.0); MEAN PLATELET VOLUME 10.4 fL (7.4-10.4); MONOCYTES 10.7 % (2-11); NEUTROPHIL ABS# 3.03 10x3/uL (1.78-5.38); PLATELET COUNT 284 10x3/uL (130-400); RBC 3.78 10x6/uL (4.20-6.10); RDW 14.2 % (11.5-14.5); WBC 6.2 10x3/uL (4.8-10.8)
[2020-10-26 07:18] LABS: ALKALINE PHOSPHATASE 328 U/L (30-120); BILIRUBIN - TOTAL 4.52 mg/dL (0.2-1.3); CALCIUM 7.9 mg/dL (8.5-10.1); CARBON DIOXIDE 21.4 mmol/L (21.0-32.0); CHLORIDE - SERUM 93 mmol/L (98-107); CREATININE - SERUM 0.7 mg/dL (0.6-1.3); MAGNESIUM - SERUM 1.6 mg/dL (1.8-2.4); PROTEIN - SERUM 5.8 g/dL (6.4-8.2); SODIUM 125 mmol/L (136-145); eGFR NON AFRICAN AMERICAN > 90 mL/min (90-120)
[2020-10-26 07:26] LABS: ALT (SGPT) 890 U/L (10-68); CALC OSMOLALITY 270 mosm/kg (275-300); POTASSIUM - SERUM 3.9 mmol/L (3.5-5.1); UREA NITROGEN 13 mg/dL (7-18)
[2020-10-26 07:28] LABS: GLUCOSE 442 mg/dL (74-106)
--- NOTE | 2020-10-26 07:30 | NUR ---
RESTING IN BED WITH EYES CLOSED, EASILY AROUSED TO SPEECH. IV LOCATED TO RIGHT FOREARM CURRENT RUNNING NS @ 75. LAB CALLED WITH CRITICAL GLUCOSE OF 442, RECHECK DONE, FSBS CURRENTLY 258. ACCORDING TO NIGHT NURSE PT IS CONSTANTLY EATING/SNACKING/ASKING FOR FOOD. EDUCATED PT ON THE REASON OF A DIABETIC DIET AND MANAGING HIS GLUCOSE LEVELS. NO CURRENT S/S OF DISTRESS, DENIES FURUTHER NEEDS, WILL CONT TO MONITOR.
[2020-10-26 08:04] VITALS: BP 113/72
[2020-10-26 12:07] VITALS: BP 116/72
[2020-10-26 17:23] VITALS: BP 119/81
--- NOTE | 2020-10-26 19:45 | NUR ---
REQUESTED TO SHOWER, LINENS CHANGED, PT ASKED TO WALK AROUND THE UNIT TO STRETCH LEGS, INFORMED PT HE HAD TO STAY ON OUR FLOOR WHEN WALKING AROUND UNIT, PT STATED UNDERSTANDING
[2020-10-26 20:00] VITALS: BP 122/73
[2020-10-27] VITALS: BP 117/68
--- NOTE | 2020-10-27 00:16 | NUR ---
I have reviewed this patient and I concur with the Shift Assessment completed by the Licensed Practical Nurse today this shift.
[2020-10-27 04:00] VITALS: BP 122/65
[2020-10-27 06:12] LABS: BASOPHILS 0.6 % (0-2); EOSINOPHILS 1.2 % (0-7); HEMOGLOBIN 11.4 g/dL (13.5-17.5); IMMATURE GRANULOCYTES 1.7 % (0-5); LYMPHOCYTE ABS# 2.08 10x3/uL (1.32-3.57); LYMPHOCYTES 31.8 % (15-50); MCH 29.8 pg (26.0-34.0); MCHC 33.5 g/dL (31.0-37.0); MEAN PLATELET VOLUME 9.8 fL (7.4-10.4); MONOCYTES 15.3 % (2-11); NEUTROPHIL ABS# 3.24 10x3/uL (1.78-5.38); NEUTROPHILS 49.4 % (40-80); PLATELET COUNT 322 10x3/uL (130-400); RBC 3.82 10x6/uL (4.20-6.10); WBC 6.6 10x3/uL (4.8-10.8)
[2020-10-27 06:27] LABS: ALBUMIN 2.2 g/dL (3.4-5.0); ALKALINE PHOSPHATASE 304 U/L (30-120); ALT (SGPT) 688 U/L (10-68); BILIRUBIN - TOTAL 3.37 mg/dL (0.2-1.3); CALCIUM 8.1 mg/dL (8.5-10.1); CARBON DIOXIDE 23.6 mmol/L (21.0-32.0); CHLORIDE - SERUM 94 mmol/L (98-107); CREATININE - SERUM 0.7 mg/dL (0.6-1.3); MAGNESIUM - SERUM 1.6 mg/dL (1.8-2.4); POTASSIUM - SERUM 4.3 mmol/L (3.5-5.1); SODIUM 128 mmol/L (136-145); UREA NITROGEN 14 mg/dL (7-18); eGFR NON AFRICAN AMERICAN > 90 mL/min (90-120)
[2020-10-27 06:30] LABS: CALC OSMOLALITY 278 mosm/kg (275-300); GLUCOSE 472 mg/dL (74-106)
--- NOTE | 2020-10-27 07:31 | NUR ---
IN BED RESTING. BED LOW POSITION, CALL LIGHT IN REACH. WILL CONTINUE TO MONITOR.
[2020-10-27 10:07] VITALS: BP 104/70
--- NOTE | 2020-10-27 11:11 | NUR ---
CHECKED BLOOD SUGAR PER ORDERS, RESULT 388. PATIENT STATED HE FELT HE SHOULD JUST CHECK HIMSELF OUT AMA, BUT WANTED HIS FATHER TO TALK TO THE DOCTOR FIRST TO GET AN UPDATE. WHEN ASKED WHY HE FELT LIKE THAT HE EXPRESSED WE WERE NOT TREATING HIS DIABETES LIKE HE DOES. STATED HE POSSIBLY WANTED TO LEAVE, NURSE TOLD HIM THAT SHE WOULD CALL MELISSA BOONE APN TO TELL ABOUT THE SITUATION. WHEN I SPOKE TO MELISSA BOONE APN, SHE SAID SHE HAD BEEN TRYING TO GET AHOLD OF THE PATIENTS FATHER MULTIPLE TIMES BUT WITH NO ANSWER. WHEN DISCUSSED WITH PATIENT, I ASKED HIM TO CALL HIS FATHER AND TELL HIM THAT HE SHOULD ANSWER THE NUMBER CALLING HIM, THAT IT IS FROM THE HOSPITAL. FINALLY GOT AHOLD OF DIMITRIS, PATIENT FATHER, TRANSFERRED TO MELISSA BOONE APN, FOR AND UPDATE AND TO TALK ABOUT THE SITUATION.
--- NOTE | 2020-10-27 14:59 | NUR ---
UP IN PHELPS WALKING. DENIES NEEDS AT THIS TIME. WILL CONTINUE TO MONITOR.
[2020-10-27 15:00] VITALS: BP 124/64
[2020-10-27 18:28] VITALS: BP 115/74
[2020-10-27 20:00] VITALS: BP 116/72
[2020-10-28] VITALS: BP 105/65
--- NOTE | 2020-10-28 01:06 | NUR ---
I have reviewed this patient and I concur with the Shift Assessment completed by the Licensed Practical Nurse today this shift.
[2020-10-28 04:00] VITALS: BP 147/90
[2020-10-28 08:06] LABS: BASOPHILS 0.3 % (0-2); EOSINOPHILS 1.8 % (0-7); HEMATOCRIT 32.2 % (42.0-54.0); HEMOGLOBIN 10.9 g/dL (13.5-17.5); IMMATURE GRANULOCYTES 1.8 % (0-5); LYMPHOCYTE ABS# 2.34 10x3/uL (1.32-3.57); LYMPHOCYTES 34.5 % (15-50); MCH 30.2 pg (26.0-34.0); MCHC 33.9 g/dL (31.0-37.0); MCV 89.2 fL (80.0-100.0); MEAN PLATELET VOLUME 10.1 fL (7.4-10.4); MONOCYTES 15.5 % (2-11); NEUTROPHIL ABS# 3.13 10x3/uL (1.78-5.38); NEUTROPHILS 46.1 % (40-80); PLATELET COUNT 380 10x3/uL (130-400); RBC 3.61 10x6/uL (4.20-6.10); RDW 14.1 % (11.5-14.5); WBC 6.8 10x3/uL (4.8-10.8)
[2020-10-28 08:08] LABS: ALBUMIN 2.3 g/dL (3.4-5.0); ALKALINE PHOSPHATASE 223 U/L (30-120); ALT (SGPT) 499 U/L (10-68); BILIRUBIN - TOTAL 2.73 mg/dL (0.2-1.3); CALC OSMOLALITY 271 mosm/kg (275-300); CALCIUM 8.1 mg/dL (8.5-10.1); CARBON DIOXIDE 23.1 mmol/L (21.0-32.0); CHLORIDE - SERUM 97 mmol/L (98-107); CREATININE - SERUM 0.6 mg/dL (0.6-1.3); GLUCOSE 312 mg/dL (74-106); POTASSIUM - SERUM 4.4 mmol/L (3.5-5.1); PROTEIN - SERUM 5.7 g/dL (6.4-8.2); SODIUM 129 mmol/L (136-145); UREA NITROGEN 16 mg/dL (7-18); eGFR NON AFRICAN AMERICAN > 90 mL/min (90-120)
--- NOTE | 2020-10-28 10:18 | NUR ---
PATIENT RESTING QUIETLY AT THIS TIME, NO DISTRESS NOTED. AROUSES EASILY TO VERBAL STIMULI, RESPIRATIONS EVEN AND UNLABORED. IV SITE DRY AND INTACT WITH NO S/S OF INFILTRATION. NORMAL SALINE RUNNING AT ORDERED RATE. ALERT AND ORIENTED X 4. CALL LUZ IN REACH, SIDE RAILS UP X 2, BED IN LOW POSITION.
[2020-10-28] MEDS ORDERED: K-DUR20 MEQ PO (11:24)
[2020-10-28] MEDS ORDERED: LEVOXYL25 MCG PO (11:24)
[2020-10-28] MEDS ORDERED: THERMOTABS 1 GM1 GM PO (11:24)
--- NOTE | 2020-10-28 13:09 | MORECARE ---
CASE MANAGEMENT DISCHARGE SUMMARY PATIENT: DEMETRIUS DE SOUZA UNIT: [id number] ADM DATE: 10/22/20 AGE: 24 : 93 SEX: M ROOM/BED: D.2230 AUTHOR: LOYDDOC PHYSICIAN: REFERRING PHYSICIAN: KARL BARRY MD DATE OF SERVICE: 10/28/20 Case Management Discharge Planning Summary DCP REVIEW SUMMARY ANTICIPATED D/C DATE: EXPECTED LOS : CASE STATUS: DCP Initiated INITIAL REVIEW: 10/22/2020 INITIAL REVIEWER: Hannah Christine FINAL DISCHARGE DISPOSITION: : FINAL REVIEWER: FINAL REVIEW DATE: DCP Focus Questions & Answers DCP Screen QUESTION: ANSWER High Risk Factors: : Decreased adherence to treatment plan DCP Evaluation QUESTION: ANSWER Patient's ability to cope with chronic illness : d. No chronic illness Would patient like to participate in any Care Coordination programs (if applicable): : Not applicable Mental health screen: : No mental health history DCP Re-evaluation QUESTION: ANSWER Would patient like to participate in any Care Coordination programs (if applicable): : Not applicable PATIENT: DEMETRIUS DE SOUZA ENCOUNTER: [id number] MEDICAL RECORD#: [id number] ADMISSION DATE: 10/22/2020 DISCHARGE DATE: ATTENDING MD: KARL HARKINS : AGE: 24 MARITAL STATUS: S DC PLAN ID: [id number] FACILITY: [facility] PRINTED ON: 10/28/20 13:09 CT All edits/amendments must be made on the electronic document DICTATION DATE: 10/28/20 1309 AIRCRAFT ASSEMBLER: AGUSTINA 10/28/20 1309 RPT#: [id number] DC DATE: STATUS: ADM IN [facility] [address] [place] [address] END OF REPORT
--- NOTE | 2020-10-28 13:11 | NUR ---
PATIENT DISCHARGED HOME WITH FAMILY AT THIS TIME. IV DISCONTINUED, TIP INTACT, BLEEDING CONTROLLED. ALL DISCHARGE INSTRUCTIONS REVIEWED WITH PATIENT AND COPY SIGNED FOR CHART. PATIENT VERBALIZED UNDERSTANDING. PATIENT TOOK INSULIN PEN AND LEFT OVER BOTTLES OF INSULIN WITH HIM PER AND ALIGNMENT TECHNICIAN. PATIENT AWAKE AND ALERT, AMBULATORY. NO DISTRESS NOTED.
--- NOTE | 2020-10-28 13:22 | MORECARE ---
CASE MANAGEMENT DISCHARGE SUMMARY PATIENT: DEMETRIUS DE SOUZA UNIT: [id number] ADM DATE: 10/22/20 AGE: 24 : 93 SEX: M ROOM/BED: D.2230 AUTHOR: LOYDDOC PHYSICIAN: REFERRING PHYSICIAN: KARL BARRY MD DATE OF SERVICE: 10/28/20 Case Management Discharge Planning Summary COMMENTS ENTERED DATE: 10/28/20 13:14 CT COMMENT TYPE: Discharge Planning REVIEWER: Hannah Christine CM met with patient at bedside after obtaining verbal consent. CM discussed availability / needs of home health, REHAB and medical equipment. DOES NOT HAVE MONEY TO GET MEDICATIONS AND HIS MEDICAID IS PENDING. WE ARE SENDING HIM HOME WITH THE INSULIN PEN AND VIAL HE HAS FROM HERE WHICH SHOULD LAST HIM SEVERAL WEEKS. HE IS TO FOLLOW UP AT DR. MARLEY OFFICE WITHIN ONE WEEK AND THEY WILL HELP HIM WITH INSULIN. I SPOKE WITH HIM ABOUT US SENDING HIM HOME WITH REGULAR INSULIN BUT HE STATES IT DOES NOT WORK AND HE DOESN'T TAKE IT. HE WILL ONLY USE THE PEN. THEREFORE I AM NOT SENDING HIM HOME WITH OTHER INSULIN. HE ASSURES ME HE WILL SEE DR. MARLEY THIS WEEK. CM TO FOLLOW AND ASSIST NEEDED. PATIENT TO DC TO HOME TODAY AND STATES HIS FATHER WILL PICK HIM UP. DCP REVIEW SUMMARY ANTICIPATED D/C DATE: EXPECTED LOS : CASE STATUS: DCP Initiated INITIAL REVIEW: 10/22/2020 INITIAL REVIEWER: Hannah Christine FINAL DISCHARGE DISPOSITION: : FINAL REVIEWER: FINAL REVIEW DATE: DCP Focus Questions & Answers DCP Screen QUESTION: ANSWER High Risk Factors: : Decreased adherence to treatment plan DCP Evaluation QUESTION: ANSWER Patient's ability to cope with chronic illness : c. Inadequate (3+ ED visits in 6 mos., readmits within 30 days, 2+ hospital admissions in 1 yr.) Physical Status: : Independent with ADL's Living Arrangements: : Home with Extended Family Baseline cognitive status: : *Oriented to person, place, situation, time and present Medication Management: : Patient states cannot afford medications Pharmacy name(s): : [facility] Would patient like to participate in any Care Coordination programs (if applicable): : Not applicable Equipment in use: : None Mental health screen: : No mental health history Psychosocial status: : Independent adult (18-64) DCP Re-evaluation QUESTION: ANSWER Would patient like to participate in any Care Coordination programs (if applicable): : Not applicable PATIENT: DEMETRIUS DE SOUZA ENCOUNTER: [id number] MEDICAL RECORD#: [id number] ADMISSION DATE: 10/22/2020 DISCHARGE DATE: ATTENDING MD: KARL HARKINS : AGE: 24 MARITAL STATUS: S DC PLAN ID: [id number] FACILITY: [facility] PRINTED ON: 10/28/20 13:21 CT All edits/amendments must be made on the electronic document DICTATION DATE: 10/28/20 1321 SENIOR GAME ADVISOR: AGUSTINA 10/28/20 1321 RPT#: [id number] DC DATE: STATUS: ADM IN [facility] [address] [place] [address] END OF REPORT
--- NOTE | 2020-10-29 16:47 | MORECARE ---
CASE MANAGEMENT DISCHARGE SUMMARY PATIENT: DEMETRIUS DE SOUZA UNIT: [id number] ADM DATE: 10/22/20 AGE: 24 : 93 SEX: M ROOM/BED: D.2230 AUTHOR: LOYDDOC PHYSICIAN: REFERRING PHYSICIAN: KARL BARRY MD DATE OF SERVICE: 10/29/20 Case Management Discharge Planning Summary COMMENTS ENTERED DATE: 10/28/20 13:14 CT COMMENT TYPE: Discharge Planning REVIEWER: Hannah Christine CM met with patient at bedside after obtaining verbal consent. CM discussed availability / needs of home health, REHAB and medical equipment. DOES NOT HAVE MONEY TO GET MEDICATIONS AND HIS MEDICAID IS PENDING. WE ARE SENDING HIM HOME WITH THE INSULIN PEN AND VIAL HE HAS FROM HERE WHICH SHOULD LAST HIM SEVERAL WEEKS. HE IS TO FOLLOW UP AT DR. MARLEY OFFICE WITHIN ONE WEEK AND THEY WILL HELP HIM WITH INSULIN. I SPOKE WITH HIM ABOUT US SENDING HIM HOME WITH REGULAR INSULIN BUT HE STATES IT DOES NOT WORK AND HE DOESN'T TAKE IT. HE WILL ONLY USE THE PEN. THEREFORE I AM NOT SENDING HIM HOME WITH OTHER INSULIN. HE ASSURES ME HE WILL SEE DR. MARLEY THIS WEEK. CM TO FOLLOW AND ASSIST NEEDED. PATIENT TO DC TO HOME TODAY AND STATES HIS FATHER WILL PICK HIM UP. DCP REVIEW SUMMARY ANTICIPATED D/C DATE: EXPECTED LOS : CASE STATUS: DCP Initiated INITIAL REVIEW: 10/22/2020 INITIAL REVIEWER: Hannah Christine FINAL DISCHARGE DISPOSITION: : FINAL REVIEWER: FINAL REVIEW DATE: DCP Focus Questions & Answers DCP Screen QUESTION: ANSWER High Risk Factors: : Decreased adherence to treatment plan DCP Evaluation QUESTION: ANSWER Patient's ability to cope with chronic illness : c. Inadequate (3+ ED visits in 6 mos., readmits within 30 days, 2+ hospital admissions in 1 yr.) Physical Status: : Independent with ADL's Living Arrangements: : Home with Extended Family Baseline cognitive status: : *Oriented to person, place, situation, time and present Medication Management: : Patient states cannot afford medications Pharmacy name(s): : [facility] Would patient like to participate in any Care Coordination programs (if applicable): : Not applicable Equipment in use: : None Mental health screen: : No mental health history Psychosocial status: : Independent adult (18-64) DCP Re-evaluation QUESTION: ANSWER Would patient like to participate in any Care Coordination programs (if applicable): : Not applicable PATIENT: DEMETRIUS DE SOUZA ENCOUNTER: [id number] MEDICAL RECORD#: [id number] ADMISSION DATE: 10/22/2020 DISCHARGE DATE: 10/28/2020 ATTENDING MD: KARL HARKINS : AGE: 24 MARITAL STATUS: S DC PLAN ID: [id number] FACILITY: [facility] PRINTED ON: 10/29/20 16:47 CT All edits/amendments must be made on the electronic document DICTATION DATE: 10/29/201646 PRACTICAL NURSING TEACHER: AGUSTINA 10/29/201646 RPT#: [id number] DC DATE:10/28/20 STATUS: DIS IN [facility] [address] [place] [address] END OF REPORT
== END 2020-10-28 13:15 | disposition home or self-care (01) | DRG 637 ==
LOC: D.ER 21:55 → D.ICU 10-22 01:45 → D.MS 10-24 15:48
PROVIDERS: Family Medicine; Internal Medicine Gastroenterology; Internal Medicine Nephrology; ADMIT Family Medicine; ATTEND Family Medicine
DX: E10.10 Type 1 diabetes mellitus with ketoacidosis without coma (principal); G93.41 Metabolic encephalopathy; E87.1 Hypo-osmolality and hyponatremia; B19.20 Unspecified viral hepatitis C without hepatic coma; E03.9 Hypothyroidism, unspecified; R74.01 Elevation of levels of liver transaminase levels; E86.0 Dehydration; Z91.19 Patient's noncompliance with other medical treatment and regimen